=== PATIENT | female | born 1955 | race Caucasian/White ===

== ENCOUNTER 2017-05-21 02:41 | Emergency (ER) | payer OTHER ==
[2017-05-21 02:53] VITALS: BP 142/75; PULSE 72; TEMP 98.5; BMI 25.0
[2017-05-21] MEDS ORDERED: SODIUM CHLORIDE 1,000 ML IV STA (02:55)
[2017-05-21] MEDS ORDERED: ACETAMINOPHEN 1000 MG/100 ML VIAL (NON FORMULARY) IVPB ONE (02:55)
[2017-05-21] MEDS ORDERED: ACETAMINOPHEN INJECTION 100 ML IVPB ONE (03:02)
--- NOTE | 2017-05-21 03:06 | PDOC ---
History of Present Illness - General Chief Complaint: Vaginal Sxs Stated Complaint: VAGINAL PAIN Time Seen by Provider: 05/21/17 02:43 - History of Present Illness Initial Comments: 05/21/17 03:01 62 F with h/o HTN, recently diagnosed trichomonas vaginalis, presenting with acute onset R groin pain. Pt states that she has been having intermittent pains in her lower abdomen and vagina for weeks. This has been accompanied by yellowish discharge from her vagina as well as occasional spotting. Pt denies F/ C. Denies N/V. Endorses dysuria, denies flank pain. Pt saw her dragline mechanic yesterday, who diagnosed her with trichomonas and started her on flagyl, the first dose of which she took earlier this evening. Pt states that around 1AM she experienced a sharp pain from her vagina to her RLQ. It is colicky and non- radiating. Pt denies any surgical history. Pt denies prior h/o STI. She believes that she contracted trichomonas from her male partner, with whom she is monogamous. She is requesting HIV test today. Past History - Past Medical History Allergies/Adverse Reactions: Allergies Allergy/AdvReac Type Severity Reaction Status Date / Time No Known Allergies Allergy Unverified 05/21/17 02:50 Home Medications: Ambulatory Orders Hydrochlorothiazide 25 mg PO DAILY 05/21/17 Lisinopril [Zestril] 20 mg PO DAILY 05/21/17 Metronidazole 500 mg PO DAILY 05/21/17 Metronidazole 500 mg PO DAILY #10 tablet 05/21/17 Oxycodone HCl/Acetaminophen [Percocet 5-325 mg Tablet] 1 tab PO Q6H PRN #10 tablet MDD 4 05/21/17 Cancer: Yes (CERVICAL) HTN: Yes - Reproductive History Cervical CA: Yes - Suicide/Smoking/Psychosocial Hx Smoking History: Unknown if ever smoked Have you smoked in the past 12 months: No Number of Cigarettes Smoked Daily: 0 Information on smoking cessation initiated: No Hx Alcohol Use: No Drug/Substance Use Hx: No Substance Use Type: None Review of Systems - Review of Systems Comments:: 05/21/17 03:05 "GENERAL/CONSTITUTIONAL: No fever or chills. No weakness. HEAD, EYES, EARS, NOSE AND THROAT: No change in vision. No ear pain or discharge. No sore throat. CARDIOVASCULAR: No chest pain or shortness of breath. RESPIRATORY: No cough, wheezing, or hemoptysis. GASTROINTESTINAL: + lower abdominal pain, No nausea, vomiting, diarrhea or constipation. GENITOURINARY: + dysuria, + yellow discharge + vaginal pain MUSCULOSKELETAL: No joint or muscle swelling or pain. No neck or back pain. SKIN: No rash NEUROLOGIC: No headache, vertigo, loss of consciousness, or change in strength/ sensation. ENDOCRINE: No increased thirst. No abnormal weight change. HEMATOLOGIC/LYMPHATIC: No anemia, easy bleeding, or history of blood clots. ALLERGIC/IMMUNOLOGIC: No hives or skin allergy. " *Physical Exam - Vital Signs Last Vital Signs Temp Pulse Resp BP Pulse Ox 98.5 F 72 14 142/75 100 05/21/17 02:42 05/21/17 02:42 05/21/17 02:42 05/21/17 02:42 05/21/17 02:42 - Physical Exam Comments: 05/21/17 03:06 "GENERAL: Awake, alert, and fully oriented, in no acute distress HEAD: No signs of trauma EYES: PERRLA, EOMI, sclera anicteric, conjunctiva clear ENT: Auricles normal inspection, hearing grossly normal, nares patent, oropharynx clear without exudates. Moist mucosa NECK: Nontender, no stepoffs, Normal ROM, supple, no lymphadenopathy, JVD, or masses LUNGS: Breath sounds equal, clear to auscultation bilaterally. No wheezes, and no crackles HEART: Regular rate and rhythm, normal S1 and S2, no murmurs, rubs or gallops ABDOMEN: + RLQ tenderness, normoactive bowel sounds. No guarding, no rebound. No masses : No CMT, clear white discharge, no adnexal masses or tenderness EXTREMITIES: Normal range of motion, no edema. No clubbing or cyanosis. No cords, erythema, or tenderness NEUROLOGICAL: Cranial nerves II through XII intact. 5/5 strength and sensation in all extremities, Normal speech, normal gait SKIN: Warm, Dry, normal turgor, no rashes or lesions noted. " ED Treatment Course - LABORATORY CBC & Chemistry Diagram: 05/21/17 02:30 05/21/17 02:30 - RADIOLOGY Radiology Studies Ordered: Category Date Time Status ABDOMEN & PELVIS CT WITH CONTR [CT] Stat CT Scan 05/21/17 02:54 Ordered Medical Decision Making - Medical Decision Making 05/21/17 03:19 62 F with recently diagnosed trichomonas vaginalis presents to ER with RLQ pain. Will need to r/o acute appy given location of pain. However, other consideration is that pt has been diagnosed with trichimonas and may be at risk for PID. Although pt's exam revealed no CMT or adnexal tenderness, TOA is a consideration as well. - Labs, UA, UCx, HIV - CTAP 05/21/17 06:10 CT scan shows "mild R hydronephrosis with proximal ureteral distention", with no visualized stone. Possibly reflects a passed stone or a nonopaque stone. This likely explains pt's symptoms, as she described pain radiating from RLQ to groin. Pt reassessed, now with significantly improved pain s/p IVF and pain meds. CT with no evidence of acute appy or TOA. Pt's pelvic exam was not concerning for PID. Pt to be DC'ed with pain medications, urology and butt maker f/u. *DC/Admit/Observation/Transfer Diagnosis at time of Disposition: Kidney stone - Discharge Dispostion Disposition: HOME Condition at time of disposition: Good - Prescriptions Prescriptions: Metronidazole 500 mg PO DAILY #10 tablet Oxycodone HCl/Acetaminophen [Percocet 5-325 mg Tablet] 1 tab PO Q6H PRN #10 tablet MDD 4 PRN Reason: Pain - Referrals Referrals: Love Stephens MD [Staff Physician] - - Patient Instructions Printed Discharge Instructions: Kidney Stones -- Adult Additional Instructions: You likely have a kidney stone. Drink plenty of fluid to flush it out. Take one percocet every 6 hours as needed for pain. Do not use more than directed. Call your dragline mechanic TODAY to arrange a follow up appointment. Continue taking the metronidazole as prescribed. If you experience worsening pain, fevers, vomiting, or any other concerning symptoms, return to the ER immediately. - Attestations Physician Attestion: 05/21/17 06:16 I, Dr. Ahsan Ceja MD, attest that this document has been prepared under my direction and personally reviewed by me in its entirety. I further attest, that it accurately reflects all work, treatment, procedures and medical decision -making performed by me.
[2017-05-21 04:01] LABS: BASOPHIL 0.5 % (0-2.0); EOSINOPHIL 1.8 % (0-4.5); MCH 30.6 pg (25.7-33.7); MCHC 34.7 g/dl (32.0-36.0); MEAN CELL VOLUME 88.3 fl (80-96); MEAN PLT VOLUME 8.6 fl (7.5-11.1); NEUTROPHILS 64.6 % (42.8-82.8); PLATELET COUNT 267 K/MM3 (134-434); RDW 12.9 % (11.6-15.6); WHITE BLOOD COUNT 7.9 K/mm3 (4.0-10.0)
[2017-05-21 04:02] LABS: URINE APPEARANCE CLEAR; URINE BILIRUBIN NEGATIVE (NEGATIVE); URINE BLOOD 1+ (NEGATIVE); URINE COLOR LTYELLOW; URINE GLUCOSE (UA) NEGATIVE (NEGATIVE); URINE KETONE NEGATIVE (NEGATIVE); URINE NITRITE NEGATIVE (NEGATIVE); URINE PROTEIN NEGATIVE (NEGATIVE); URINE UROBILINOGEN NEGATIVE mg/dL (0.2-1.0)
[2017-05-21 04:03] LABS: URINE LEUK ESTERASE 3+ (NEGATIVE)
[2017-05-21 04:06] LABS: URINE BACTERIA RARE /hpf (NONE SEEN); URINE RBC <1 /hpf (0-3); URINE WBC 37 /hpf (3-5)
[2017-05-21 04:13] LABS: INR 0.94 (0.82-1.09); PROTHROMBIN TIME (PATIENT) 10.3 SEC (9.98-11.88)
[2017-05-21] MEDS ORDERED: morphine CARPU-JECT 4 MG/1 ML DISP.SYRIN IVPUSH ONE (04:14)
[2017-05-21 04:15] LABS: ACTIVATED PTT 26.7 SECONDS (26.9-34.4)
[2017-05-21 04:27] LABS: ALBUMIN 3.9 g/dl (3.4-5.0); ALK PHOS 63 U/L (45-117); ANION GAP 11 (8-16); BILIRUBIN,TOTAL 0.6 mg/dL (0.2-1.0); CALCIUM 9.1 mg/dL (8.5-10.1); CO2 27 mmol/L (21-32); CREATININE 0.7 mg/dL (0.55-1.02); GLUCOSE,RANDOM 95 mg/dL (74-106); SGOT/AST 46 U/L (15-37); SGPT/ALT 63 U/L (12-78); TOT PROT 6.9 g/dl (6.4-8.2)
[2017-05-21 04:38] LABS: HIV 1 & 2 AB NEGATIVE; HIV 1 AGp24 NEGATIVE
--- NOTE | 2017-05-21 19:54 | PDOC ---
Patient Follow-up (Call Back) - Post ED Follow - Up Condition at time of discharge: Good Disposition at time of original discharge: HOME Reason for Call Back: Radiology (received call from Dr. Quiroz radiologist in regards to pt's CT of ABdomen/pelvis with contrast pt. has mild rt. hydroureteronephrosis, findings may be attributed to a recently passed calculus or lucent calculus if pt is on a PPI. A 2 mm nonobstructing left renal calculus. No left hydronephrosis. 2 hypodense lesions in pancreaus up to 2.0 X 2.0cm. These may represent benigh versus malignant cystic neoplasms. Given the presence of calcification in the pancreatic tail, alternative consideration includes pseudocyst. Further evaluation with multiphase contrast enhanced MRI of pancreas is recommended, GI evaluation & continued short-term interval follow up CT or MRI of pancreas are suggested. GI evalution and continued short term interval follow up CT or MRI of pancreas are suggested. Pt. was called pt. to follow up with Dr. Hughes as soon as possible, will fax results to him. Pt. voiced understanding of need to follow up, and will call tomorrow)
== END 2017-05-21 06:20 | disposition home or self-care (01) ==
LOC: FER 02:41
PROC: 3E033NZ Introduction of Analgesics, Hypnotics, Sedatives into Peripheral Vein, Percutaneous Approach (ICD-10-PCS; principal; 2017-05-21)
PROC: 3E033GC Introduction of Other Therapeutic Substance into Peripheral Vein, Percutaneous Approach (ICD-10-PCS; 2017-05-21)
DX: Z87.442 Personal history of urinary calculi (principal); Z85.41 Personal history of malignant neoplasm of cervix uteri; I10 Essential (primary) hypertension
CPT/HCPCS: 36415; 74177-TC; 80053; 81003; 81015; 83605; 85025; 85610; 85730; 86850; 86900; 86901; 87086; 87186; 87389; 87491; 87591; 96361; 96374; 99284-25

== ENCOUNTER 2017-07-24 14:44 | Emergency (ER) | payer OTHER ==
[2017-07-24 14:48] VITALS: BP 189/93; PULSE 64; TEMP 98; BMI 26.4
--- NOTE | 2017-07-24 14:49 | PDOC ---
History of Present Illness - General History Source: Patient, Family Exam Limitations: No Limitations - History of Present Illness Initial Comments: 07/24/17 15:51 The patient is a 62 year old female, with a significant past medical history of hepatitis C, who presents to the emergency department for evaluation of low potassium s/p receiving blood work results. The patient reports that she received her blood work results back that were taken a few weeks ago and was advised by her PCP to visit the ED as soon as possible for evaluation for low potassium. The patient reports that she has been experiencing symptoms of intermittent palpitations, leg cramping and diaphoresis for the past few months. She denies recent fevers, chills, headache or dizziness. She denies recent nausea, vomit, diarrhea or constipation. She denies recent dysuria, frequency, urgency or hematuria. She denies recent chest pain or shortness of breath. <Joe Guerrero - Last Filed: 07/24/17 16:45> <Christophre Rios - Last Filed: 07/24/17 18:17> - General Chief Complaint: Revisit, Lab Variance Stated Complaint: low k Time Seen by Provider: 07/24/17 14:49 Past History <Joe Guerrero - Last Filed: 07/24/17 16:45> - Past Medical History Cancer: Yes (CERVICAL) COPD: No HTN: Yes - Reproductive History Cervical CA: Yes - Suicide/Smoking/Psychosocial Hx Smoking History: Never smoked Have you smoked in the past 12 months: No Number of Cigarettes Smoked Daily: 0 Hx Alcohol Use: Yes Drug/Substance Use Hx: Yes Substance Use Type: Alcohol, Marijuana <Christopher Rios - Last Filed: 07/24/17 18:17> - Past Medical History Allergies/Adverse Reactions: Allergies Allergy/AdvReac Type Severity Reaction Status Date / Time codeine Allergy Verified 07/24/17 14:45 nadolol Allergy Verified 07/24/17 14:45 Sulfa (Sulfonamide Allergy Verified 07/24/17 14:45 Antibiotics) Home Medications: Ambulatory Orders Hydrochlorothiazide 25 mg PO DAILY 05/21/17 Lisinopril [Zestril] 20 mg PO DAILY 05/21/17 Review of Systems - Review of Systems Comments:: 07/24/17 15:56 ROS: A complete review of 10 out of 10 review of systems is taken and is negative apart from what is previously mentioned below and in the HPI. <Joe Guerrero - Last Filed: 07/24/17 16:45> *Physical Exam - Vital Signs Last Vital Signs Temp Pulse Resp BP Pulse Ox 98 F 64 18 189/93 98 07/24/17 14:44 07/24/17 14:44 07/24/17 14:44 07/24/17 14:44 07/24/17 14:44 - Physical Exam Comments: 07/24/17 15:56 Vitals: Triage vital signs reviewed General Appearance: No acute distress, well nourished, well developed Neck: Supple; No nuchal rigidity Chest Wall: Nontender Cardiac: Regular rate and rhythm, no murmurs, no rubs, no gallops Lungs: Clear to auscultation bilateral, good air movement bilaterally Abdomen: Soft, nondistended, normal bowel sounds, nontender to palpation Extremities: Full range of motion to all extremities, no cyanosis, clubbing, or edema Skin: Warm and dry, no rashes or lesions, no rash, no petechiae Neuro: AOX3; Cranial Nerves 2-12 grossly intact, Strength intact to all extremities, Sensation intact to all extremities, gait normal Psych: Normal mood, normal affect <Joe Guerrero - Last Filed: 07/24/17 16:45> - Vital Signs Last Vital Signs Temp Pulse Resp BP Pulse Ox 98 F 64 18 189/93 98 07/24/17 14:44 07/24/17 14:44 07/24/17 14:44 07/24/17 14:44 07/24/17 14:44 <Christopher Rios - Last Filed: 07/24/17 18:17> Heart Score/ECG Review #1 07/24/17 16:45 EKG performed at 15:16:54 demonstrates rate of 55 bpm, rhythm of sinus bradycardia, axis equal to normal. No T wave inversions, no ST elevations. <Joe Guerrero - Last Filed: 07/24/17 16:45> ED Treatment Course - LABORATORY CBC & Chemistry Diagram: 07/24/17 15:00 07/24/17 15:00 - ADDITIONAL ORDERS Additional order review: Laboratory Results 07/24/17 15:00 Sodium 136 Potassium 3.6 Chloride 106 Carbon Dioxide 26 Anion Gap 4 L BUN 15 Creatinine 0.8 Creat Clearance w eGFR > 60 Random Glucose 99 Calcium 8.8 Magnesium 2.0 Total Bilirubin 0.2 AST 40 ALT 45 H Alkaline Phosphatase 44 Total Protein 6.6 Albumin 3.7 07/24/17 15:00 RBC 4.15 MCV 90.5 MCHC 34.9 RDW 11.8 MPV 8.9 Neutrophils % 48.1 Lymphocytes % 39.7 Monocytes % 10.7 H Eosinophils % 1.0 Basophils % 0.5 <Joe Guerrero - Last Filed: 07/24/17 16:45> - LABORATORY CBC & Chemistry Diagram: 07/24/17 15:00 07/24/17 15:00 <Christopher Rios - Last Filed: 07/24/17 18:17> Medical Decision Making - Medical Decision Making 07/24/17 15:57 Patient sent to the emergency room because of hypo-ketonemia on outpatient labs from 3 weeks ago. Patient has endorsed some weakness and muscle cramping and EKG and repeat blood work was ordered Her EKG is normal sinus rhythm with no evidence of hypokalemia on her chemistry panel today her potassium is 3.6. No indication for additional potassium supplementation she was advised to follow-up with her doctor next week Her EKG was nonischemic her troponin was normal. She will inform her doctor that her TSH is pending. She'll return to the emergency department for any severe worsening symptoms or for any concerns Findings, the need for follow-up and strict return instructions discussed with patient. 07/24/17 18:17 <Christopher Rios - Last Filed: 07/24/17 18:17> *DC/Admit/Observation/Transfer - Attestations Scribe Attestion: 07/24/17 15:57 Documentation prepared by Joe Guerrero, acting as medical malpractice paralegal for Christopher Rios MD. <Joe Guerrero - Last Filed: 07/24/17 16:45> <Christopher Rios - Last Filed: 07/24/17 18:17> Diagnosis at time of Disposition: Cramp and spasm - Discharge Dispostion Condition at time of disposition: Stable - Patient Instructions Additional Instructions: Take all medications as prescribed. Follow-up with your doctor next week. Return to ED for any severe worsening symptoms or for any concerns.
[2017-07-24 15:19] LABS: BASOPHIL 0.5 % (0-2.0); MCH 31.6 pg (25.7-33.7); MCHC 34.9 g/dl (32.0-36.0); MEAN CELL VOLUME 90.5 fl (80-96); MEAN PLT VOLUME 8.9 fl (7.5-11.1); NEUTROPHILS 48.1 % (42.8-82.8); PLATELET COUNT 245 K/MM3 (134-434); RDW 11.8 % (11.6-15.6); WHITE BLOOD COUNT 5.4 K/mm3 (4.0-10.8)
[2017-07-24 15:29] LABS: ALBUMIN 3.7 g/dl (3.5-5.0); ALK PHOS 44 U/L (32-92); ANION GAP 4 (8-16); BILIRUBIN,TOTAL 0.2 mg/dl (0.2-1.0); CALCIUM 8.8 mg/dl (8.4-10.2); CO2 26 mmol/L (22-28); CREATININE 0.8 mg/dl (0.6-1.3); GLUCOSE,RANDOM 99 mg/dl (74-106); SGOT/AST 40 U/L (10-42); SGPT/ALT 45 U/L (10-40); TOT PROT 6.6 g/dl (6.4-8.3)
[2017-07-24 18:57] LABS: THYROID STIMULATING HORMONE 0.37 uIU/ml (0.358-3.74)
--- NOTE | 2017-07-25 22:27 | EKG ---
Test Reason : Blood Pressure : / mmHG Vent. Rate : 055 BPM Atrial Rate : 055 BPM P-R Int : 172 ms QRS Dur : 084 ms QT Int : 438 ms P-R-T Axes : 014 035 038 degrees QTc Int : 419 ms SINUS BRADYCARDIA SEPTAL INFARCT (CITED ON OR BEFORE 24-JUL-2017) ABNORMAL ECG WHEN COMPARED WITH ECG OF 11-AUG-2011 23:40, NO SIGNIFICANT CHANGE WAS FOUND Confirmed by ERICA MOORE, MILES ([id number]) on 07/25/2017 10:26:57 PM Referred By: MD PELLETIER Confirmed By:MILES MALDONADO MD
== END 2017-07-24 17:22 | disposition home or self-care (01) ==
LOC: FER 14:44
DX: R25.2 Cramp and spasm (principal); B19.20 Unspecified viral hepatitis C without hepatic coma; Z85.41 Personal history of malignant neoplasm of cervix uteri; I10 Essential (primary) hypertension
CPT/HCPCS: 36415; 80053; 83735; 84443; 84481; 84484; 85025; 93005; 99281-25